=== PATIENT | male | born 1980 | race Caucasian/White ===

== ENCOUNTER 2020-12-27 23:46 | Emergency (ER) | payer OTHER ==
[~2020-12-27] VITALS: Ht 170.2 cm; Wt 70.3 kg
[2020-12-27 23:49] VITALS: BP 133/89
--- NOTE | 2020-12-28 00:04 | NUR ---
PT WAS SEEN AND EXMINED BY DR CARO. MEDICALLY CLEAR AND STABLE FOR BOOKING. PT WAS D/C'D TO [facility] IN CUSTODY IN STABLE CONDITION.
== END 2020-12-28 00:09 ==
LOC: ER 23:46
DX: Z02.89 Encounter for other administrative examinations (principal); F20.9 Schizophrenia, unspecified; F31.9 Bipolar disorder, unspecified